=== PATIENT | female | born 1980 | race African-American/Black ===

== ENCOUNTER 2016-08-23 13:38 | Emergency (ER) | payer MEDICAID, OTHER, SELFPAY ==
[2016-08-23 14:17] LABS: #Lymphocytes 1.3 thou/uL (1.20-3.40); #Monocytes 0.5 thou/uL (0.11-0.59); #Neutrophils 4.2 thou/uL (1.40-6.50); %Basophils 0.5 % (0.0-1.0); %Eosinophils 0.6 % (0.0-10.0); %Lymphocytes 22.1 % (21.0-51.0); %Monocytes 8.3 % (0.0-10.0); %Neutrophils 68.5 % (42.0-75.0); Hemoglobin 6.3 g/dL (12.0-16.0); Mean Corpuscular HGB CONC 26.5 g/dL (32.0-36.0); Mean Corpuscular Volume 60.5 fl (81.0-99.0); Mean Platelet Volume 7.4 fL (7.4-10.4); Platelet Count 211 thou/uL (130-400); RBC Distribution Width 17.6 % (11.5-14.5); White Blood Cell (WBC) Count 6.1 thou/uL (4.8-10.8)
[2016-08-23 14:30] LABS: MDiff Complete? YES
[2016-08-23 14:31] LABS: Anisocytosis SLIGHT = 6-15 cells (100X) (0-5/hpf); Hypochromia MODERATE=16-30 cells (100X) (0-5/hpf); Microcytosis MODERATE=15-30 cells (100X) (0-5/hpf); PLT Morphology Comment Appears Adequate
[2016-08-23 14:34] LABS: CKMB 2.7 ng/mL (0-6.6); Troponin I 0.036 ng/mL (< 0.028)
[2016-08-23 14:56] LABS: ALT (SGPT) 10 U/L (8-55); AST (SGOT) 27 U/L (5-34); Albumin 3.1 g/dL (3.5-5.0); Alkaline Phosphatase 183 U/L (40-150); Anion Gap 15 mmol/L (10-20); BUN (Urea Nitrogen) 6 mg/dL (7.0-18.7); Bilirubin, Total 1.3 mg/dL (0.2-1.2); CK (CPK) 186 U/L (29-168); Calc. Creatinine Clearance 0 mL/min (70-130); Calcium 8.7 mg/dL (7.8-10.44); Carbon Dioxide 19 mmol/L (22-29); Chloride 108 mmol/L (98-107); Estimated GFR-MDRD Greater than 90; Globulin 3.3 g/dL (2.4-3.5); Glucose 71 mg/dL (70-105); Potassium 3.4 mmol/L (3.5-5.1); Protein, Total 6.4 g/dL (6.0-8.3); Sodium 139 mmol/L (136-145)
--- NOTE | 2016-08-23 15:28 | RAD ---
PORTABLE CHEST: History: Dyspnea. Comparison: 04-27-09 FINDINGS: Heart size appears slightly enlarged. A portion of this is certainly related to the AP technique. A PA chest film would be helpful for better assessment. Mediastinal structures are unremarkable. Lungs are clear of infiltrates. There are no signs of failure or any type of consolidative process. IMPRESSION: Suggestion of some mild cardiomegaly. Some of this could be related to the AP portable technique. POS: DAVID
== END 2016-08-23 15:34 | disposition short-term general hospital (02) ==
LOC: NAV ERS 13:38
DX: O99.013 Anemia complicating pregnancy, third trimester (principal); O16.3 Unspecified maternal hypertension, third trimester; Z3A.34 34 weeks gestation of pregnancy
CPT/HCPCS: 36415; 71010; 80053; 82553; 83880; 84484; 85025; 85379; 93005; 96374; J0360

== ENCOUNTER 2018-08-05 15:33 | Emergency (ER) | payer OTHER, SELFPAY ==
--- NOTE | 2018-08-05 16:04 | RAD ---
Exam:Left wrist 3 views HISTORY: Pain. Injury. COMPARISON: None FINDINGS: Intercarpal and radiocarpal joint spaces are preserved. No fracture. No cortical irregulari ty or periosteal reaction. IMPRESSION: Unremarkable left wrist 3 views
== END 2018-08-05 16:10 | disposition home or self-care (01) ==
LOC: NAV ERS 15:33
DX: S63.502A Unspecified sprain of left wrist, initial encounter (principal); X50.0XXA Overexertion from strenuous movement or load, initial encounter

== ENCOUNTER 2019-03-26 13:12 | Emergency (ER) | payer SELFPAY | END 2019-03-26 14:20 | disposition home or self-care (01) | LOC: NAV ERS 13:12 | DX: J06.9 Acute upper respiratory infection, unspecified (principal) | CPT/HCPCS: 99283 ==

== ENCOUNTER 2019-06-26 15:24 | Emergency (ER) | payer OTHER, SELFPAY | END 2019-06-26 16:10 | disposition home or self-care (01) | LOC: NAV ERS 15:24 | DX: K02.9 Dental caries, unspecified (principal); I10 Essential (primary) hypertension | CPT/HCPCS: 99282 ==

== ENCOUNTER 2020-03-16 09:11 | Emergency (ER) | payer OTHER ==
[2020-03-16 14:28] LABS: SARS-CoV-2 PCR by NAA Not Detected (NotDetected)
== END 2020-03-16 09:45 | disposition home or self-care (01) ==
LOC: NAV ERS 09:11
DX: K02.9 Dental caries, unspecified (principal); Z20.822 Contact with and (suspected) exposure to COVID-19
CPT/HCPCS: 87635; 99283; U0003; U0005

== ENCOUNTER 2022-08-14 17:07 | Emergency (ER) | payer SELFPAY ==
[2022-08-14] MEDS ORDERED: Mag-Al Plus 1200 MG/1200 MG/120 MG/30 ML UDCUP ONE (17:27)
[2022-08-14] MEDS ORDERED: Lidocaine Viscous Sol 2% 15 ml UD Cup ONE (17:27)
== END 2022-08-14 17:48 | disposition home or self-care (01) ==
LOC: NAV ERS 17:07
DX: R11.2 Nausea with vomiting, unspecified (principal)
CPT/HCPCS: 99283